=== PATIENT | female | born 2000 | race Caucasian/White ===

== ENCOUNTER 2024-04-19 08:29 | Emergency (ER) | payer MEDICAID ==
[~2024-04-19] VITALS: Ht 154.9 cm; Wt 49.2 kg
[2024-04-19 09:07] LABS: BILIRUBIN,URINE NEGATIVE (Neg); CLARITY,URINE SLIGHTLY CLOUDY (Clear); COLOR,URINE YELLOW (Yellow); GLUCOSE, URINE NEGATIVE (Neg); KETONES,URINE NEGATIVE (Neg); LEUKOCYTE ESTERASE ,URINE NEGATIVE (Neg); NITRITES, URINE NEGATIVE (Neg); OCCULT BLOOD,URINE TRACE-INTACT (Neg); PROTEIN,URINE NEGATIVE (Neg); UROBILINOGEN,URINE 0.2 E.U/dL (0.2-1.0)
[2024-04-19 09:09] LABS: URINE HCG NEGATIVE (NEG)
[2024-04-19 09:14] LABS: AMORPHOUS URATES 1+; BACTERIA,URINE 1+ /HPF (Neg); MUCUS STRANDS MODERATE /LPF (Neg); SQUAMOUS EPITHELIAL CELL,UR MANY /LPF (FEW); UA COLLECTION TYPE CLN CATCH MIDSTREAM
[2024-04-19 09:15] LABS: RBC,URINE 0-2 /HPF (0-2); WBC,URINE 0-4 /HPF (0-4)
[2024-04-19 09:17] LABS: ALANINE AMINOTRANSFERASE 25 U/L (12-78); ALBUMIN 4.5 G/DL (3.4-5.0); ALBUMIN/GLOBULIN RATIO 1.2 (1.1-1.5); ALKALINE PHOSPHATASE 37 IU/L (46-116); ANION GAP 8 (8-16); ASPARTATE AMINO TRANSFERASE 14 U/L (10-37); BILIRUBIN,TOTAL 0.6 MG/DL (0.1-1.0); CALCIUM 8.9 MG/DL (8.5-10.1); CHLORIDE 101 MMOL/L (99-107); CREATININE 0.89 MG/DL (0.40-0.90); GLUCOSE 115 MG/DL (70-104); LIPASE 23 U/L (16-77); SODIUM 132 MMOL/L (135-145); TOTAL CARBON DIOXIDE 22.8 MMOL/L (24-32); TOTAL PROTEIN 8.3 G/DL (6.4-8.2); eCRCL 73 ML/MIN; eGFR 77 ML/MIN
[2024-04-19 09:18] LABS: BASOPHILS % (AUTO) 0.3 % (0-1); EOSINOPHILS # (AUTO) 0.1 X10'3 (0-0.9); EOSINOPHILS % (AUTO) 0.9 % (0-6); HEMATOCRIT 42.3 % (35.0-45.0); HEMOGLOBIN 13.9 g/dl (12.0-16.0); LYMPHOCYTES # (AUTO) 2.1 X10'3 (1.1-4.8); LYMPHOCYTES % (AUTO) 26.2 % (21-51); MEAN CORPUSCULAR HEMOGLOBIN 31.3 PG (27.0-31.0); MEAN CORPUSCULAR HGB CONC 32.8 g/dL (33.0-36.5); MEAN CORPUSCULAR VOLUME 95.3 FL (78-98); MEAN PLATELET VOLUME 8.3 FL (7.4-10.4); MONOCYTES # (AUTO) 0.6 X10'3 (0-0.9); MONOCYTES % (AUTO) 7.9 % (2-12); NEUTROPHILS # (AUTO) 5.2 X10'3 (1.8-7.7); NEUTROPHILS % (AUTO) 64.7 % (42-75); PLATELET COUNT 267 X10'3 (140-440); RED BLOOD COUNT 4.43 X10'6 (4.20-5.60); WHITE BLOOD COUNT 8.1 X10'3 (4.5-11.0)
[2024-04-19 09:21] LABS: BLOOD UREA NITROGEN 15 MG/DL (7-18); BUN/CREATININE RATIO 16.9 (10.0-20.0)
[2024-04-19] MEDS: ondansetron 4mg rapidly disintigrating tab PO ONE (10:02)
[2024-04-19] MEDS: dicyclomine 10 MG capsule PO ONE (10:03)
[2024-04-19] MEDS: mag hydrox/Alum hydrox/simeth 30ml oral suspension PO ONE (10:05)
[2024-04-19] MEDS: LIDOcaine 2% Viscous 15ml cup MM ONE (10:05)
[2024-04-19] MEDS ORDERED: DICY20TA17 PO (12:10)
[2024-04-19] MEDS ORDERED: OMEP40CA21 PO (12:10)
[2024-04-19] MEDS ORDERED: ONDA4TAB12 PO (12:10)
[2024-04-19 12:46] VITALS: BP 112/76; PULSE 62; RESP 16; TEMP 98.7; O2SAT 98
== END 2024-04-19 12:49 | disposition home or self-care (01) ==
LOC: ER 08:30
DX: R11.10 Vomiting, unspecified (principal); R10.13 Epigastric pain
CPT/HCPCS: 36415; 76700; 80053; 81001; 81025; 83690; 85025; 99284